=== PATIENT | female | born 1970 | race Caucasian/White ===

== ENCOUNTER 2016-07-17 10:03 | Emergency (ER) | payer OTHER ==
[~2016-07-17] VITALS: Ht 160 cm; Wt 72.7 kg
[2016-07-17 10:15] VITALS: BP 152/102; PULSE 106; RESP 17; O2SAT 99
--- NOTE | 2016-07-17 10:17 | ED.REPORT ---
HPI-Chest Pain 40 and Over Date of Service Jul 17, 2016 ED Provider: Kemal Casillas MD 46 y/o female with infrequent anxiety attacks presents to the ED complaining of chest pressure, onset yesterday afternoon. Pt also complains of bilateral tinnitus, nausea, and difficulty sleeping. She reports that her sx are similar to but worse than the sx she had during an anxiety attack in her 20s. Pt denies any justin chest pain, cough, fever and vomiting, abdominal pain. 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 Pt is currently on control. She takes no medications for anxiety. Nursing Notes Stated Complaint: CHEST PAIN/BP Chief Complaint: Chest Pain Nursing Notes Reviewed: Yes Allergies: Coded Allergies: Penicillins (Verified Allergy, Severe, 07/17/16) Sulfa (Sulfonamide Antibiotics) (Verified Allergy, Severe, 07/17/16) prochlorperazine (Verified Allergy, Severe, 07/17/16) Scheduled PRN Lorazepam (Lorazepam) 0.5 Mg Tablet 0.5 MG PO TID PRN PRN For Anxiety General Time Seen by MD: 10:15 Chief Complaint Chest pressure Hx Obtained From: Patient Arrived By: Walk-in Sudden in Onset?: Yes Onset Occurred: Yesterday Symptom Duration: Since onset Location: : Substernal Quality: Pressure Severity: Current: Mild Severity: Maximum: Mild Recent Healthcare: No recent doctor visit Similar Sx Previous: Yes Past Medical History Past Medical History Anxiety Past Surgical History none reported Smoking History Unknown if Ever Smoker Social History Alcohol Use: "Social" Ambulatory Status Independent Review of Systems Difficulty sleeping Constitutional: Denies: Fever Respiratory: Reports: Shortness of breath, Denies: Non-productive cough Cardiovascular: Reports: Chest pain GI: Reports: Nausea, Denies: Abdominal pain, Vomiting Psychiatric: Reports: Anxiety, Stress Complete sys rev & neg: except as marked. Ears / Nose / Throat: Reports: Ear ringing bilateral Physical Exam Initial Vital Signs Vital Signs (First) Date Time Temp Pulse Resp B/P Pulse Ox O2 Delivery O2 Flow Rate FiO2 07/17/16 10:15 37.1 106 17 152/102 99 Room Air Initial VS: Reviewed, Vital signs abnormal Head / Eyes: Atraumatic, Normocephalic, PERRL ENT: Mucous membranes moist, Conjunctiva normal, No scleral icterus Neck: Supple, Full range of motion Extremities: Vascular intact, Neuro intact, No swelling, No tenderness Skin: Warm, Dry, No cyanosis Neurologic: Alert, Oriented, Nonfocal Psychiatric: Mood/affect normal, Behavior normal, Normal thought content General/Constitutional: Awake, Alert, No acute distress, Cooperative, Not toxic appearing Behavior: Positive: Anxious Respiratory / Chest: Atraumatic, Breath sounds NL, Breath sounds = bilat, No respiratory distress, No rales, No rhonchi, No wheezing, No retractions Cardiovascular: Regular rhythm, Heart sounds NL, No murmurs Heart Rate / Rhythm: Positive: Tachycardia Abdomen: Atraumatic, Soft, Non-tender Interpretation & Diagnostics Lab Results Interpretation Result Diagram: 07/17/16 0936 07/17/16 0936 Test 07/17/16 09:36 White Blood Count 10.4th/mm3 (3.8-10.1) Red Blood Count 5.17mil/mm3 (3.90-5.20) Hemoglobin 17.6g/dL (12.0-15.6) Hematocrit 51.0% (35.0-46.0) Mean Corpuscular Volume 98.6fL (81-100) Mean Corpuscular Hemoglobin 34.0pg (27.0-35.0) Mean Corpuscular Hemoglobin Concent 34.5% (32.0-37.0) Red Cell Distribution Width 13.0% (12.3-15.4) Platelet Count 264bil/L (150-400) Neutrophils (%) (Auto) 75.6% (40-74) Lymphocytes (%) (Auto) 18.6% (14-46) Monocytes (%) (Auto) 4.6% (4-12) Eosinophils (%) (Auto) 0.3% (0-5) Basophils (%) (Auto) 0.5% (0-3) D-Dimer < 0.50mg/L FEU (<0.50) Sodium Level 140mEq/L (134-144) Potassium Level 3.3mEq/L (3.5-5.2) Chloride Level 101mEq/L (97-108) Carbon Dioxide Level 18mmol/L (18-29) Blood Urea Nitrogen 5mg/dL (6-24) Creatinine 0.69mg/dL (0.57-1.00) Estimat Glomerular Filtration Rate 132mL/min (>59) Glucose Level 117mg/dL (60-99) Calcium Level 9.8mg/dL (8.5-10.1) Magnesium Level 1.7mg/dL (1.6-2.6) Total Bilirubin 0.5mg/dL (0.0-1.2) Aspartate Amino Transf (AST/SGOT) 56U/L (0-50) Alanine Aminotransferase (ALT/SGPT) 62U/L (0-32) Alkaline Phosphatase 106U/L (25-150) Troponin T < 0.010ug/L (0.0-0.011) Total Protein 8.8g/dL (6.4-8.4) Albumin 5.1g/dL (3.4-5.0) ECG Interpretation ECG Interpretation: Sinus tachycardia. Rate 105 No STT changes Time: 10:27 Interpreted by: ED physician X-Ray Chest Interpretation Chest Xray Interpretation: IMPRESSION: Negative chest. No pneumonia or overt heart failure. Dictated by: Brady Tiwari M.D. on 07/17/2016 at 9:49 Approved by: Brady Tiwari M.D. on 07/17/2016 at 9:50 View: Portable, 1 view Interpretation / Wet Read by: Interpret - Radiologist Re-Eval/Medical Decision Med Decision/Clinical Course 46-year-old female started of anxiety presenting complaining of anxiety and chest heaviness times one day. She reports she feels this way when she gets anxious in the past. She has stressors at work. Her troponins are negative. No EKG changes. Her d-dimer is normal. She felt much better after the lorazepam requested to go home. Any suicidal ideation or homicidal ideation. Discharged home with return precautions. She has follow-up in 2 days. Time of Eval: 11:35 Patient Status: Condition unchanged Re-Evaluation/Progress Note: Pt rechecked. Discussed lab results and diagnosis. Informed the pt of the plan to discharge. Pt understands and agrees with plan. F/U instructions and RTER warning given. All questions addressed. Counseled Regarding: Diagnosis, Lab results, Need for follow-up, When/why to return to ED Discharge & Departure Primary Impression: Anxiety Additional Impression: Non-cardiac chest pain Disposition: Home Discharge Condition All VS Reviewed: Yes Condition: Stable Patient Instructions: Chest Pain (ED) Additional Instructions: Take Lorazepam as prescribed . Please don't drink alcohol with Ativan and don't drive after taking Ativan. Return to the emergency department in case of suicidal ideation or any new or worsening symptoms. A work note is attached. Referrals: [facility] Scribe Attestation Portions of this note were transcribed by Kareem Grigsby and Scar Munoz. I, , personally performed the history, physical exam and medical decision-making;I reviewed and confirmed the accuracy of the information in the transcribed note. Signed by Kareem Grigsby and Scar Munoz, Scribe. 07/17/16 11:50. copies to: [facility] Kemal Casillas MD Jul 17, 2016 10:17 aKreem Grigsby Jul 17, 2016 10:24 SCAR MUNOZ Jul 17, 2016 11:53
[2016-07-17 10:39] LABS: BASOPHILS % (AUTO) 0.5 % (0-3); EOSINOPHILS % (AUTO) 0.3 % (0-5); MONOCYTES % (AUTO) 4.6 % (4-12); Mean Corpuscular Volume 98.6 fL (81-100); NEUTROPHILS % (AUTO) 75.6 % (40-74); Platelet Count 264 bil/L (150-400)
--- NOTE | 2016-07-17 10:52 | DRSVH ---
PROCEDURE: X-RAY CHEST ONE VIEW, PORTABLE ([id number]) INDICATIONS: chest pressure TECHNIQUE: One view of the chest was acquired. COMPARISON: None. FINDINGS: Surgical changes and devices: None. Lungs and pleura: There may be scattered calcified granulomas within the chest. There is no focal co nsolidation, effusion, or pneumothorax. The pulmonary vasculature appears to be within normal limits . Mediastinum: Mediastinal contours appear normal. Heart size is normal. Bones and chest wall: No suspicious bony lesions. Overlying soft tissues appear unremarkable. IMPRESSION: Negative chest. No pneumonia or overt heart failure. Dictated by: Brady Tiwari M.D. on 07/17/2016 at 9:49 Approved by: Brady Tiwari M.D. on 07/17/2016 at 9:50
[2016-07-17 11:04] LABS: Magnesium 1.7 mg/dL (1.6-2.6)
[2016-07-17 11:05] LABS: TROPONIN T < 0.010 ug/L (0.0-0.011)
[2016-07-17] MEDS ORDERED: LORA0.5T PO (11:39)
[2016-07-17 13:39] VITALS: BP 134/91; PULSE 110; RESP 20; O2SAT 96
== END 2016-07-17 13:40 | disposition home or self-care (01) ==
LOC: SED 10:03
DX: F41.9 Anxiety disorder, unspecified (principal); R07.89 Other chest pain; Z88.0 Allergy status to penicillin; Z88.2 Allergy status to sulfonamides; Z88.8 Allergy status to other drugs, medicaments and biological substances
CPT/HCPCS: 36415; 71010; 80053; 83735; 84484; 85025; 85378; 93005; 96374; 96376; 99285; J2060